=== PATIENT | female | born 1965 | race Two or more races ===

== ENCOUNTER 2019-12-31 12:13 | Outpatient (CLI) | payer OTHER | END 2019-12-31 16:43 | disposition home or self-care (01) | LOC: OFIC 805 12:13 | PROVIDERS: ATTEND Otolaryngology Otology & Neurotology | DX: D44.7 Neoplasm of uncertain behavior of aortic body and other paraganglia (principal); R42 Dizziness and giddiness; J32.3 Chronic sphenoidal sinusitis ==

== ENCOUNTER 2022-01-09 07:21 | Outpatient (CLI) | payer OTHER | END 2022-01-09 07:25 | disposition home or self-care (01) | LOC: NUCLEAR 07:21 | PROVIDERS: ATTEND Obstetrics & Gynecology | DX: C50.911 Malignant neoplasm of unspecified site of right female breast (principal) | CPT/HCPCS: 78816; A9552 ==

== ENCOUNTER 2022-01-15 08:16 | Outpatient (CLI) | payer OTHER | END 2022-01-15 08:34 | disposition home or self-care (01) | LOC: TOM 08:16 | PROVIDERS: ATTEND Obstetrics & Gynecology | DX: R10.2 Pelvic and perineal pain (principal); R19.04 Left lower quadrant abdominal swelling, mass and lump; C50.811 Malignant neoplasm of overlapping sites of right female breast ==

== ENCOUNTER 2023-02-19 07:39 | Outpatient (CLI) | payer OTHER | END 2023-02-19 07:40 | disposition home or self-care (01) | LOC: NUCLEAR 07:39 | PROVIDERS: ATTEND Internal Medicine Hematology & Oncology | DX: C50.911 Malignant neoplasm of unspecified site of right female breast (principal) ==